=== PATIENT | male | born 1995 | race Two or more races ===

== ENCOUNTER 2019-02-25 23:15 | Emergency (ER) | payer SELFPAY ==
[~2019-02-25] VITALS: Ht 180.3 cm; Wt 73.9 kg
--- NOTE | 2019-02-26 | NUR ---
PT BIBLA AND RA FROM STREET FOR PUBLIC INTOXICATION. PT AWAKE, DOZING INTERMITTENTLY. VITAL SIGNS STABLE. NO ACUTE DISTRESS NOTED AT THIS TIME. WILL CONTINUE TO MONITOR
--- NOTE | 2019-02-26 01:03 | NUR ---
Patient is resting comfortably in bed with eyes closed. Easily aroused. VSS
--- NOTE | 2019-02-26 05:43 | NUR ---
Patient discharged to home in stable condition. Written and verbal after care instructions given. Patient verbalizes understanding of instruction. Pt ambulatory with a steady gait
[2019-02-26 05:44] VITALS: BP 75/124
== END 2019-02-26 05:44 | disposition home or self-care (01) ==
LOC: ER 23:17
DX: F10.129 Alcohol abuse with intoxication, unspecified (principal); F12.10 Cannabis abuse, uncomplicated; Y90.9 Presence of alcohol in blood, level not specified; Z87.891 Personal history of nicotine dependence